=== PATIENT | female | born 1995 | race American Indian/Alaskan Native ===

== ENCOUNTER 2017-02-12 05:16 | Emergency (ER) | payer MEDICAID ==
[2017-02-12 05:27] VITALS: BP 112/75
--- NOTE | 2017-02-12 06:53 | Emergency Department Report ---
[facility] Chief Complaint: Eye Problems Stated Complaint: RT EYE RED Time Seen by Provider: 02/12/17 06:46 Duration: 1 Day Side: Right Severity: mild Symptoms: Yes Eye Itching, Yes Eye Redness, No Eye Pain, No Mucous Drainage, No Purulent Drainage, No Blurred Vision, No Preceding URI, No H/O Allergic Rhinitis , No Contact Lens Use, No Trauma, No Fever, No Headache Other History: She is a 21-year-old female with no known medical history presents to ED complaining of right eye itching and redness that started when she got off work yesterday. Patient states this morning she woke up she says some yellowish substance without shot her right eye. She denies any foreign object going to eyes, trauma, fever f ED Review of Systems ROS: Stated complaint: RT EYE RED Other details as noted in HPI Constitutional: denies: chills, fever Eyes: other (itching, redness). denies: eye pain, eye discharge, vision change ENT: denies: ear pain, throat pain, dental pain, hearing loss, congestion Respiratory: denies: cough, shortness of breath, wheezing Cardiovascular: denies: chest pain, palpitations Endocrine: no symptoms reported Gastrointestinal: denies: abdominal pain, nausea, diarrhea Genitourinary: denies: urgency, dysuria, discharge Musculoskeletal: denies: back pain, joint swelling, arthralgia Skin: denies: rash, lesions Neurological: denies: headache, weakness, paresthesias Psychiatric: denies: anxiety, depression Hematological/Lymphatic: denies: easy bleeding, easy bruising ED Past Medical Hx - Past Medical History Previous Medical History?: No - Surgical History Past Surgical History?: No - Social History Smoking Status: Current Some Day Smoker Substance Use Type: None - Medications Home Medications: Home Medications Medication Instructions Recorded Confirmed Last Taken Type Ofloxacin 0.3% [Ocuflox] 1 - 2 drops OP TID #1 bottle 02/12/17 Unknown Rx [facility] Exam - Exam General: Vital signs noted. No distress. Alert and acting appropriately. Eye Exam: Right Injection, Both EOMI, Neither Chemosis, Neither Abnormal Pupil, Neither Eye Foreign Body, Neither Lid Foreign Body, Neither Mucous Discharge, Neither Purulent Discharge, Neither Fluorescein Uptake, Neither Corneal Edema, Neither Photophobia HEENT: No Nasal Congestion, No Pharyngeal Erythema Remainder of HEENT: Normal Lungs: Yes Clear Lung Sounds, Yes Good Air Exchange, No Wheezes, No Stridor, No Cough, No Nasal Flaring, No Retractions, No Use of Accessory Muscles ED Course Vital Signs 02/12/17 05:23 Temperature 98.3 F Pulse Rate 78 Blood Pressure 112/75 O2 Sat by Pulse 98 Oximetry ED Medical Decision Making - Medical Decision Making 21-year-old female presents with right eye conjunctivitis ED course: Vision acuity Bilaterally with Glasses. Vision is intact, Right eye mild sclerae erythema, nonedematous, otherwise eyes are intact Discussed patient to use eyedrops as prescribed Discussed follow-up with primary care physician. Vital signs are normal patient is in no distress. Critical care attestation.: If time is entered above; I have spent that time in minutes in the direct care of this critically ill patient, excluding procedure time. ED Disposition Clinical Impression: Conjunctivitis, right eye Qualifiers: Conjunctivitis type: acute Acute conjunctivitis type: unspecified Qualified Code(s): H10.31 - Unspecified acute conjunctivitis, right eye Disposition: DC- TO HOME OR SELFCARE Is pt being admited?: No Does the pt Need Aspirin: No Condition: Stable Instructions: Conjunctivitis (ED) Prescriptions: Ofloxacin 0.3% [Ocuflox] 1 - 2 drops OP TID #1 bottle Referrals: PRIMARY CARE, [Primary Care Provider] - 3-5 Days [facility] [Outside] - 3-5 Days [facility] [Outside] - 3-5 Days Forms: Work/School Release Form(ED) Time of Disposition: 06:55
== END 2017-02-12 07:10 | disposition home or self-care (01) ==
LOC: ED 05:16
DX: H10.9 Unspecified conjunctivitis (principal); F17.210 Nicotine dependence, cigarettes, uncomplicated
CPT/HCPCS: 99282

== ENCOUNTER 2017-12-27 08:19 | Emergency (ER) | payer SELFPAY ==
[2017-12-27] MEDS ORDERED: NACL 0.9% 1000 ML 1,000 ML IV ONE (10:38)
--- NOTE | 2017-12-27 10:40 | Emergency Department Report ---
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 Patient states she has had some intermittent tingling and numbness in her left upper extremity as well as dizziness. Patient states yesterday she was very dizzy at work and had a near syncopal episode. Patient states she's had some mild headaches as well intermittently and some increased dizziness when standing. Patient denies any nausea vomiting diarrhea or abnormal vaginal bleeding. We'll check electrolytes on this patient initially that the heat from her warehouse and not hydrating herself well has attempted to electrolyte abnormality or dehydration. Printed tests will also be checked as well.
--- NOTE | 2017-12-27 11:01 | Emergency Department Report ---
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 Patient states she has had some intermittent tingling and numbness in her left upper extremity as well as dizziness. Patient states yesterday she was very dizzy at work and had a near syncopal episode. Patient states she's had some mild headaches as well intermittently and some increased dizziness when standing. Patient denies any nausea vomiting diarrhea or abnormal vaginal bleeding. She denies any dizziness present. She said this was yesterday. Her only symptoms at present is a headache that is for the tenderness located to the front of her head. Denies any nasal congestion, facial pain and pressure runny nose, cough or chest pain. Denies any neck pain or stiffness, fever or chills. She said when she has abdominal pain as crampy but none now. This problem started one month ago. She said her primary care is [facility] and she does not have any medical problem. Denies any urinary burning, frequency or urgency. Last menstrual period was 12/19/2017 Allergies/Adverse Reactions: Allergies No Known Allergies Allergy (Unverified 12/27/17 08:30) Home Medications: Ambulatory Orders Ofloxacin 0.3% [Ocuflox] 1 - 2 drops OP TID #1 bottle 02/12/17 Ibuprofen [Motrin] 600 mg PO Q8H PRN #15 tablet 12/27/17 ED Review of Systems ROS: Stated complaint: LOERA/NUMBNESS TO HAND Other details as noted in HPI Constitutional: denies: chills, fever, weakness Eyes: denies: eye pain, eye discharge, vision change ENT: denies: ear pain, throat pain, dental pain, epistaxis, congestion Respiratory: denies: cough, shortness of breath, SOB with exertion, SOB at rest , stridor, wheezing Cardiovascular: denies: chest pain, palpitations, dyspnea on exertion, edema, syncope Gastrointestinal: abdominal pain (intermittent abdominal cramping). denies: nausea, vomiting, diarrhea, constipation, hematemesis, melena, hematochezia Genitourinary: denies: urgency, dysuria, frequency, hematuria, discharge, abnormal menses, dyspareunia Musculoskeletal: denies: back pain, joint swelling, arthralgia, myalgia Skin: denies: rash, lesions Neurological: headache (frontal headache), numbness (intermittent numbness to left hand), other (dizziness intermittent over the last month). denies: weakness, paresthesias, confusion, abnormal gait, vertigo Psychiatric: denies: anxiety, depression ED Past Medical Hx - Past Medical History Previous Medical History?: No - Surgical History Past Surgical History?: No - Family History Family history: hypertension - Social History Smoking Status: Never Smoker Substance Use Type: None - Medications Home Medications: Home Medications Medication Instructions Recorded Confirmed Last Taken Type Ofloxacin 0.3% [Ocuflox] 1 - 2 drops OP TID #1 bottle 02/12/17 Unknown Rx Ibuprofen [Motrin] 600 mg PO Q8H PRN #15 tablet 12/27/17 Unknown Rx ED Physical Exam - General Limitations: No Limitations General appearance: alert, in no apparent distress - Head Head exam: Present: atraumatic, normocephalic, normal inspection, other (head examination is normal) - Eye Eye exam: Present: normal appearance, PERRL, EOMI. Absent: nystagmus, periorbital swelling, periorbital tenderness Pupils: Present: normal accommodation - ENT ENT exam: Present: normal exam, normal orophraynx, mucous membranes moist, TM's normal bilaterally, normal external ear exam - Neck Neck exam: Present: normal inspection, full ROM, other (no C-spine tenderness). Absent: tenderness, meningismus, lymphadenopathy - Respiratory Respiratory exam: Present: normal lung sounds bilaterally. Absent: respiratory distress, chest wall tenderness - Cardiovascular Cardiovascular Exam: Present: regular rate, normal rhythm, normal heart sounds. Absent: systolic murmur, diastolic murmur - GI/Abdominal GI/Abdominal exam: Present: soft, normal bowel sounds. Absent: distended, tenderness, guarding, rebound, rigid, organomegaly, mass, bruit, pulsatile mass , hernia - Extremities Exam Extremities exam: Present: normal inspection - Back Exam Back exam: Present: normal inspection, other (ambulates without any problems). Absent: tenderness, CVA tenderness (R), CVA tenderness (L), muscle spasm, paraspinal tenderness, vertebral tenderness, rash noted - Neurological Exam Neurological exam: Present: alert, oriented X3, normal gait, reflexes normal, other (no gross focal deficits). Absent: motor sensory deficit - Psychiatric Psychiatric exam: Present: normal affect, normal mood - Skin Skin exam: Present: warm, dry, intact, normal color. Absent: rash ED Course Vital Signs 12/27/17 12/27/17 08:20 12:23 Temperature 98.6 F Pulse Rate 77 Respiratory 18 18 Rate Blood Pressure 120/81 O2 Sat by Pulse 100 Oximetry Vital Signs 12/27/17 12/27/17 12/27/17 08:20 12:23 12:42 Temperature 98.6 F 98.9 F Pulse Rate 77 66 Respiratory 18 18 15 Rate Blood Pressure 120/81 Blood Pressure 127/76 [Left] O2 Sat by Pulse 100 100 Oximetry - Reevaluation(s) Reevaluation #1: 12/27/17 11:01 Patient was screened by Dr. Dago Fatima and/or displaced. Awaiting lab results. IV fluid and she is in. She is stable Reevaluation #2: 12/27/17 12:40 Patient assessment remained same and she is feeling better. She received Toradol 60 mg IM in emergency room and up to 60 mg by mouth for relief of headache. ED Medical Decision Making - Lab Data Result diagrams: 12/27/17 11:07 12/27/17 11:07 Lab Results 12/27/17 12/27/17 12/27/17 Range/Units 11:07 11:07 11:30 WBC 5.5 (4.5-11.0) K/mm3 RBC 5.07 H (3.65-5.03) M/mm3 Hgb 12.8 (10.1-14.3) gm/dl Hct 40.7 (30.3-42.9) % MCV 80 (79-97) fl MCH 25 L (28-32) pg MCHC 32 (30-34) % RDW 15.9 H (13.2-15.2) % Plt Count 225 (140-440) K/mm3 Lymph % (Auto) 37.5 H (13.4-35.0) % [place] % (Auto) 13.0 H (0.0-7.3) % Eos % (Auto) 0.2 (0.0-4.3) % Baso % (Auto) 1.3 (0.0-1.8) % Lymph # 2.1 (1.2-5.4) K/mm3 [place]ke # 0.7 (0.0-0.8) K/mm3 Eos # 0.0 (0.0-0.4) K/mm3 Baso # 0.1 (0.0-0.1) K/mm3 Seg Neutrophils % 48.0 (40.0-70.0) % Seg Neutrophils # 2.6 (1.8-7.7) K/mm3 Sodium 140 (137-145) mmol/L Potassium 3.8 (3.6-5.0) mmol/L Chloride 103.5 (98-107) mmol/L Carbon Dioxide 21 L (22-30) mmol/L Anion Gap 19 mmol/L BUN 10 (7-17) mg/dL Creatinine 0.6 L (0.7-1.2) mg/dL Estimated GFR > 60 ml/min BUN/Creatinine Ratio 17 % Glucose 67 (65-100) mg/dL Calcium 9.3 (8.4-10.2) mg/dL Urine Color Yellow (Yellow) Urine Turbidity Clear (Clear) Urine pH 5.0 (5.0-7.0) Ur Specific Red [place] 1.024 (1.003-1.030) Urine Protein 100 mg/dl (Negative) mg/dL Urine Glucose (UA) Neg (Negative) mg/dL Urine Ketones Tr (Negative) mg/dL Urine Blood Neg (Negative) Urine Nitrite Neg (Negative) Ur Reducing Substances Not Reportable Urine Bilirubin Neg (Negative) Urine Ictotest Not Reportable Urine Urobilinogen < 2.0 (<2.0) mg/dL Ur Leukocyte Esterase Neg (Negative) Urine WBC (Auto) 7.0 H (0.0-6.0) /HPF Urine RBC (Auto) 5.0 (0.0-6.0) /HPF U Epithel Cells (Auto) 16.0 H (0-13.0) /HPF Urine Bacteria (Auto) 1+ (Negative) /HPF Amorphous Crystals 1+ Urine Mucus 3+ /HPF Urine HCG, Qual Negative (Negative) - Medical Decision Making This is a 22-year-old female here reported that she's been having multiple symptoms over the last month. She does have a primary care physician at [facility] and she had numbness 2 days ago which is gone. Abdominal cramping which is not having today. Dizziness which she is not having today today she is having a headache and she says she is here to be evaluated. She is not having any urinary symptoms or symptoms. She does not have any visual difficulties and no nausea or vomiting. No fever or chills. She was screened by Dr. Fatima and evaluated by myself. She had CBC which is normal, test is negative, BMP is normal, urinalysis shows trace ketone and contaminated without any infection. Patient with mild dehydration and I discuss her lab results. She voiced understanding. It aches resolved with medication and patient to follow up with [facility] primary care. 1: Headache-resolved with Toradol 60 mg IM and Deltasone 60 mg by mouth and will send home on Motrin. 2: Mild dehydration-patient with trace ketone in her urine, CBC and BMP, tests are negative.received 1 L of normal saline in the emergency room. Patient educated on medication, diagnosis, need to follow-up with [facility] primary care and they can refer her to [facility] neurologist if she continues to have headache. Patient discharged home in stable condition with prescription for Motrin, her vital signs are stable, she is a febrile and she says she feels better and headache has been relieved. Patient to follow up with [facility] primary care in 3 days and I discussed with her that if her condition worsens she needs to return to the emergency room and she voices understanding. - Differential Diagnosis initial imbalance, neurological disorder, simple headache, dehydration Critical care attestation.: If time is entered above; I have spent that time in minutes in the direct care of this critically ill patient, excluding procedure time. ED Disposition Clinical Impression: Mild dehydration Headache Qualifiers: Headache type: unspecified Headache chronicity pattern: acute headache Intractability: not intractable Qualified Code(s): R51 - Headache Disposition: DC-01 TO HOME OR SELFCARE Is pt being admited?: No Does the pt Need Aspirin: No Condition: Stable Instructions: Acute Headache (ED), Dehydration (ED) Additional Instructions: Please follow up with [facility] primary care in 3 days and they will refer you to neurologist if need be Take Motrin for pain as prescribed You have mild dehydration C needs to drink at least 2-3 L of water daily to include Gatorade. If condition worsens, return to the emergency room Prescriptions: Ibuprofen [Motrin] 600 mg PO Q8H PRN #15 tablet PRN Reason: Pain Referrals: PRIMARY CARE, [Primary Care Provider] - 12/31/17 [facility] [Outside] - 12/30/17 Forms: Work/School Release Form(ED)
[2017-12-27 11:30] LABS: Basophils # (Auto) 0.1 K/mm3 (0.0-0.1); Basophils % (Auto) 1.3 % (0.0-1.8); Eosinophils % (Auto) 0.2 % (0.0-4.3); Hematocrit 40.7 % (30.3-42.9); Hemoglobin 12.8 gm/dl (10.1-14.3); Lymphocytes # (Auto) 2.1 K/mm3 (1.2-5.4); Lymphocytes % (Auto) 37.5 % (13.4-35.0); Mean Corpuscular HGB Conc 32 % (30-34); Mean Corpuscular Volume 80 fl (79-97); Monocytes # (Auto) 0.7 K/mm3 (0.0-0.8); Platelet Count 225 K/mm3 (140-440); Red Blood Count 5.07 M/mm3 (3.65-5.03); Red Cell Distribution Width 15.9 % (13.2-15.2)
[2017-12-27 11:31] LABS: Mean Corpuscular Hemoglobin 25 pg (28-32)
[2017-12-27 11:39] LABS: BUN/Creatinine Ratio 17; Blood Urea Nitrogen 10 mg/dL (7-17); Calcium 9.3 mg/dL (8.4-10.2); Hemolysis Index 10
[2017-12-27 12:04] LABS: HCG Qualitative,Urine Negative (Negative)
[2017-12-27 12:07] LABS: Amorphous Crystals,Urine 1+; Bacteria,Urine 1+ /HPF (Negative); Bilirubin,Urine NEG (Negative); Blood,Urine NEG (Negative); Color,Urine Yellow (Yellow); Mucus,Urine 3+ /HPF; Urobilinogen,Urine < 2.0 mg/dL (<2.0)
[2017-12-27] MEDS ORDERED: DELTASONE PO ONE (12:11)
[2017-12-27] MEDS ORDERED: TORADOL IM ONE (12:11)
[2017-12-27 12:42] VITALS: BP 127/76
== END 2017-12-27 13:00 | disposition home or self-care (01) ==
LOC: ED 08:19
DX: E86.0 Dehydration (principal); R51 Headache
CPT/HCPCS: 36415; 80048; 81001; 81025; 85025; 96360; 96372; 99283; J1885; J7030; J7512; 96361

== ENCOUNTER 2018-01-07 06:50 | Emergency (ER) | payer SELFPAY ==
[2018-01-07] MEDS ORDERED: NACL 0.9% 1000 ML 1,000 ML IV ONE (06:57)
[2018-01-07 07:11] LABS: Basophils % (Auto) 0.4 % (0.0-1.8); Eosinophils # (Auto) 0.2 K/mm3 (0.0-0.4); Eosinophils % (Auto) 2.8 % (0.0-4.3); Hematocrit 39.4 % (30.3-42.9); Hemoglobin 12.6 gm/dl (10.1-14.3); Lymphocytes # (Auto) 2.4 K/mm3 (1.2-5.4); Lymphocytes % (Auto) 42.6 % (13.4-35.0); Mean Corpuscular HGB Conc 32 % (30-34); Mean Corpuscular Volume 79 fl (79-97); Monocytes # (Auto) 0.8 K/mm3 (0.0-0.8); Monocytes % (Auto) 13.9 % (0.0-7.3); Platelet Count 279 K/mm3 (140-440); Red Blood Count 4.97 M/mm3 (3.65-5.03); Red Cell Distribution Width 15.6 % (13.2-15.2)
[2018-01-07 07:14] LABS: Mean Corpuscular Hemoglobin 25 pg (28-32)
[2018-01-07 07:28] LABS: Alanine Aminotransferase 13 units/L (7-56); Albumin 3.6 g/dL (3.9-5); BUN/Creatinine Ratio 25; Blood Urea Nitrogen 15 mg/dL (7-17); Calcium 8.9 mg/dL (8.4-10.2); Hemolysis Index 36; Lipase 40 units/L (13-60)
[2018-01-07 07:44] LABS: Bilirubin,Urine NEG (Negative); Blood,Urine NEG (Negative); Color,Urine Yellow (Yellow); HCG Qualitative,Urine Negative (Negative); Mucus,Urine FEW /HPF; Protein,Urine <15 mg/dL mg/dL (Negative); Urobilinogen,Urine < 2.0 mg/dL (<2.0)
[2018-01-07] MEDS ORDERED: BENTYL IM ONE (07:56)
--- NOTE | 2018-01-07 07:56 | Emergency Department Report ---
ED General Adult HPI - General Chief complaint: Abdominal Pain Stated complaint: ABDOMINAL PAIN Time Seen by Provider: 01/07/18 07:01 Source: patient Mode of arrival: Ambulatory Limitations: No Limitations - History of Present Illness Initial comments: Patient presents emergency Department with 4 weeks of abdominal pain. Patient describes abdominal pain as a sharpness and a twisting sensation that is not alleviated by anything. Patient has been evaluated 3 times for her abdominal pain in emergency Department without any imaging. Patient also complains of diarrhea but denies any blood in the diarrhea. Patient is not sure of family history of inflammatory bowel disease or irritable bowel syndrome. -: Gradual Location: abdomen Radiation: non-radiation Severity scale (0 -10): 5 Quality: sharp, other (twisting) Consistency: constant Improves with: none Worsens with: none Associated Symptoms: denies other symptoms Treatments Prior to Arrival: none - Related Data Previous Rx's Medication Instructions Recorded Last Taken Type Ofloxacin 0.3% [Ocuflox] 1 - 2 drops OP TID #1 bottle 02/12/17 Unknown Rx Ibuprofen [Motrin] 600 mg PO Q8H PRN #15 tablet 12/27/17 Unknown Rx Dicyclomine [Bentyl] 20 mg PO QID PRN #24 tablet 01/07/18 Unknown Rx Allergies Allergy/AdvReac Type Severity Reaction Status Date / Time No Known Allergies Allergy Verified 01/07/18 06:56 ED Review of Systems ROS: Stated complaint: ABDOMINAL PAIN Other details as noted in HPI Comment: All other systems reviewed and negative Constitutional: denies: chills, fever Eyes: denies: eye pain, eye discharge, vision change ENT: denies: ear pain, throat pain Respiratory: denies: cough, shortness of breath, wheezing Cardiovascular: denies: chest pain, palpitations Endocrine: no symptoms reported Gastrointestinal: abdominal pain, diarrhea. denies: nausea Genitourinary: denies: urgency, dysuria, discharge Musculoskeletal: denies: back pain, joint swelling, arthralgia Skin: denies: rash, lesions Neurological: denies: headache, weakness, paresthesias Psychiatric: denies: anxiety, depression Hematological/Lymphatic: denies: easy bleeding, easy bruising ED Past Medical Hx - Past Medical History Previous Medical History?: No - Surgical History Past Surgical History?: No - Social History Smoking Status: Never Smoker Substance Use Type: None - Medications Home Medications: Home Medications Medication Instructions Recorded Confirmed Last Taken Type Ofloxacin 0.3% [Ocuflox] 1 - 2 drops OP TID #1 bottle 02/12/17 Unknown Rx Ibuprofen [Motrin] 600 mg PO Q8H PRN #15 tablet 12/27/17 Unknown Rx Dicyclomine [Bentyl] 20 mg PO QID PRN #24 tablet 01/07/18 Unknown Rx ED Physical Exam - General Limitations: No Limitations General appearance: alert, in no apparent distress - Head Head exam: Present: atraumatic, normocephalic - Eye Eye exam: Present: normal appearance, PERRL, EOMI - ENT ENT exam: Present: mucous membranes moist - Neck Neck exam: Present: normal inspection - Respiratory Respiratory exam: Present: normal lung sounds bilaterally. Absent: respiratory distress - Cardiovascular Cardiovascular Exam: Present: regular rate, normal rhythm. Absent: systolic murmur, diastolic murmur, rubs, gallop - GI/Abdominal GI/Abdominal exam: Present: soft, normal bowel sounds. Absent: distended, tenderness - Extremities Exam Extremities exam: Present: normal inspection - Back Exam Back exam: Present: normal inspection - Neurological Exam Neurological exam: Present: alert, oriented X3, CN II-XII intact. Absent: motor sensory deficit - Psychiatric Psychiatric exam: Present: normal affect, normal mood - Skin Skin exam: Present: warm, dry, intact, normal color. Absent: rash ED Course Vital Signs 01/07/18 01/07/18 01/07/18 06:47 06:51 08:53 Temperature 32.1 F L 98.9 F Pulse Rate 79 75 68 Respiratory 18 18 18 Rate Blood Pressure 106/73 106/73 Blood Pressure 90/56 [Left] O2 Sat by Pulse 99 99 100 Oximetry ED Medical Decision Making - Lab Data Result diagrams: 01/07/18 07:04 01/07/18 07:04 - Medical Decision Making Discussed results with patient and need to follow with her primary care physician Critical care attestation.: If time is entered above; I have spent that time in minutes in the direct care of this critically ill patient, excluding procedure time. ED Disposition Clinical Impression: Abdominal pain Disposition: DC-01 TO HOME OR SELFCARE Is pt being admited?: No Does the pt Need Aspirin: No Condition: Stable Instructions: Abdominal Pain (ED) Additional Instructions: Return if worse Prescriptions: Dicyclomine [Bentyl] 20 mg PO QID PRN #24 tablet PRN Reason: pain Referrals: PRIMARY CAREMD [Primary Care Provider] - 3-5 Days PROMISE TORRES MD [Staff Physician] - 3-5 Days [facility] [Outside] - 3-[address] [facility] [Outside] - 3-5 Days [facility] [Provider Group] - 3-5 Days Time of Disposition: 09:40
--- NOTE | 2018-01-07 09:13 | Cat Scan Report ---
CT abdomen and pelvis with contrast: Abdominal pain. Transverse images were obtained of the chest ischium following administration of IV contrast. Coronal and sagittal reconstructions are included. The visualized lung bases are unremarkable. The abdominal and retroperitoneal organs appear normal. The gallbladder is contracted but not otherwise remarkable. The abdominal aorta appears normal. There is no obvious periaortic adenopathy. The unopacified small bowel and mesentery appears generally normal but with a relatively small amount of mesenteric fat. There is a increased amount of fluid throughout the colon loops with no other significant changes. The appendix is questionably visualized appearing normal and there is no indication of an inflammatory process in this region or elsewhere. Imaging of the pelvis demonstrates an unremarkable uterus. The ovaries are not clearly identified. No evidence of pelvic mass or fluid noted. The osseous structures are normal. Impressions: Generally unremarkable exam. Unexplained fluid in the colon.
[2018-01-07 10:15] VITALS: BP 107/63
== END 2018-01-07 10:30 | disposition home or self-care (01) ==
LOC: ED 06:50
DX: R10.9 Unspecified abdominal pain (principal); R19.7 Diarrhea, unspecified
CPT/HCPCS: 36415; 74177; 80053; 81001; 81025; 83690; 85025; 96372; 99284; J0500; Q9967

== ENCOUNTER 2018-09-14 14:49 | Emergency (ER) | payer OTHER ==
[2018-09-14 14:58] VITALS: BP 117/75
[2018-09-14] MEDS ORDERED: IBUPROFEN PO ONE (14:58)
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
[2018-09-14] MEDS ORDERED: NORCO 10/325 PO ONE (15:49)
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
== END 2018-09-14 17:02 | disposition home or self-care (01) ==
LOC: ED 14:49
DX: S46.911A Strain of unspecified muscle, fascia and tendon at shoulder and upper arm level, right arm, initial encounter (principal); S13.4XXA Sprain of ligaments of cervical spine, initial encounter; S20.211A Contusion of right front wall of thorax, initial encounter; V89.2XXA Person injured in unspecified motor-vehicle accident, traffic, initial encounter; Y93.89 Activity, other specified; Y92.488 Other paved roadways as the place of occurrence of the external cause; Y99.8 Other external cause status
CPT/HCPCS: 99283

== ENCOUNTER 2018-11-30 17:52 | Emergency (ER) | payer MEDICAID, OTHER ==
[2018-11-30 18:11] VITALS: BP 130/81
[2018-11-30] MEDS ORDERED: TYLENOL PO ONE (18:14)
--- NOTE | 2018-11-30 18:14 | Emergency Department Report ---
Blank Doc - Documentation Documentation: 22 y o female presents with sorethroat and fever x today rapid strep and tylenol administered in Triage ACC eval
[2018-11-30] MEDS ORDERED: TYLENOL ONE (18:16)
--- NOTE | 2018-11-30 19:42 | Emergency Department Report ---
Minor Respiratory - HPI Chief Complaint: Sore Throat Stated Complaint: THROAT/HEAD/LIGHT HEADED/WEAK Time Seen by Provider: 11/30/18 18:09 Duration: 1 Day Pain Location: Throat Severity: mild Minor Respiratory: Yes Sore Throat, Yes Able to Tolerate Fluids, Yes Fever, No Rhinorrhea, No Ear Pain, No Cough, No Sick Contacts, No Hemoptysis, No Chest Pain, No Shortness of Breath Other History: pT is a 22-year-old female that comes in with acute on chronic tonsillitis. She's got exudates on her right tonsil. She is febrile. There is no abscess. She is taking by mouth. She is nontoxic. Ambulatory in the ER. ED Review of Systems ROS: Stated complaint: THROAT/HEAD/LIGHT HEADED/WEAK Other details as noted in HPI Comment: All other systems reviewed and negative ED Past Medical Hx - Past Medical History Previous Medical History?: No - Surgical History Past Surgical History?: No - Family History Family history: no significant - Social History Smoking Status: Never Smoker Substance Use Type: Alcohol - Medications Home Medications: Home Medications Medication Instructions Recorded Confirmed Last Taken Type Ofloxacin 0.3% [Ocuflox] 1 - 2 drops OP TID #1 bottle 02/12/17 Unknown Rx Ibuprofen [Motrin] 600 mg PO Q8H PRN #15 tablet 12/27/17 Unknown Rx Dicyclomine [Bentyl] 20 mg PO QID PRN #24 tablet 01/07/18 Unknown Rx Cyclobenzaprine [Flexeril] 10 mg PO QHS PRN #10 tablet 09/14/18 Unknown Rx Ibuprofen [Motrin] 600 mg PO Q8H PRN #20 tablet 09/14/18 Unknown Rx Amoxicillin [Trimox CAP] 500 mg PO BID #20 capsule 11/30/18 Unknown Rx Minor Respiratory Exam - Exam General: Vital signs noted. No distress. Alert and acting appropriately. HEENT: Yes Pharyngeal Erythema, Yes Pharyngeal Exudates, Yes Moist Mucous Membranes, No Rhinorrhea, No Conjuctival Injection Ear: Neither TM Bulge, Neither TM Erythema, Neither EAC Pain, Neither EAC Discharge Neck: Yes Supple, No Adenopathy Lungs: Yes Good Air Exchange, No Wheezes, No Ronchi, No Stridor Heart: Yes Regular, No Murmur Abdomen: Yes Normal Bowel Sounds, No Tenderness, No Peritoneal Signs Skin: No Rash, No Edema Neurologic: Alert and oriented, no deficits. Musculoskeletal: Unremarkable. ED Course Vital Signs 11/30/18 11/30/18 18:08 18:17 Temperature 101.5 F H Pulse Rate 71 Respiratory 18 18 Rate Blood Pressure 130/81 O2 Sat by Pulse 96 Oximetry ED Medical Decision Making - Medical Decision Making Vital Signs 11/30/18 11/30/18 18:08 18:17 Temperature 101.5 F H Pulse Rate 71 Respiratory 18 18 Rate Blood Pressure 130/81 O2 Sat by Pulse 96 Oximetry VSS [facility]BRILE [facility]BULATORY TAKING PO ABC INTACT CONTROLLING SECRETIONS EXUDATE R TONSIL NO ABSCESS DC HOME WITH DC PLAN OF CARE Critical care attestation.: If time is entered above; I have spent that time in minutes in the direct care of this critically ill patient, excluding procedure time. ED Disposition Clinical Impression: Pharyngitis, Fever Disposition: DC-01 TO HOME OR SELFCARE Is pt being admited?: No Does the pt Need Aspirin: No Condition: Stable Instructions: Pharyngitis (ED) Additional Instructions: DIET TOLERATED MEDS ORDERED TODAY IN ER FOLLOW INSTRUCTIONS ON THE BOTTLE FOLLOW UP PCP WITHIN 48 HOURS TO ENSURE YOU ARE GETTING BETTER ACTIVITY TOLERATED MOTRIN OR TYLENOL FOR PAIN OR FEVER RETURN TO THE ER FOR WORSENING SYMPTOMS NOT RELIEVED BY YOUR MEDICATIONS. Prescriptions: Amoxicillin [Trimox CAP] 500 mg PO BID #20 capsule Referrals: TOI MCKEON MD [Primary Care Provider] - 3-5 Days Time of Disposition: 19:41
== END 2018-11-30 20:02 | disposition home or self-care (01) ==
LOC: ED 17:52
DX: J02.9 Acute pharyngitis, unspecified (principal)
CPT/HCPCS: 87430